=== PATIENT | male | born 1955 | race Hispanic/Latino ===

== ENCOUNTER 2018-07-04 18:07 | Emergency (ER) | payer OTHER ==
[2018-07-04 18:12] VITALS: RESP 16
[2018-07-04] MEDS ORDERED: Sodium Chloride 0.9% 1,000 ML IV STA (19:41)
[2018-07-04 20:03] LABS: BASO % 0.7 % (0.0-2.0); EOS # 0.1 K/uL (0.0-0.7); EOS % 3.5 % (0.0-4.0); HEMOGLOBIN 15.1 g/dL (12.0-18.0); LYMPH # 1.1 K/uL (1.0-4.3); LYMPH % 26.5 % (20.0-40.0); MEAN CELL VOLUME 93.4 fl (80.0-94.0); MEAN CORPUSCULAR HEMOGLOBIN 31.5 pg (27.0-31.0); MEAN CORPUSCULAR HGB CONC 33.8 g/dL (33.0-37.0); MEAN PLATELET VOLUME 8.3 fl (7.2-11.7); MONO # 0.5 K/uL (0.0-0.8); MONO % 12.8 % (0.0-10.0); NEUT # 2.4 K/uL (1.8-7.0); NEUT % 56.5 % (50.0-75.0); NRBC % 0.1 % (0.0-0.0); RBC 4.79 Mil/uL (4.40-5.90); RED CELL DISTRIBUTION WIDTH 12.4 % (11.5-14.5); WHITE BLOOD COUNT 4.2 K/uL (4.8-10.8)
[2018-07-04 20:16] LABS: ALB/GLOB RATIO 1.4 (1.0-2.1); ALBUMIN 4.5 g/dL (3.5-5.0); ALT/SGPT 31 U/L (21-72); AST/SGOT 27 U/L (17-59); BLOOD UREA NITROGEN 19 mg/dl (9-20); CALCIUM 9.7 mg/dL (8.4-10.2); GFR NON-AFRICAN AMERICAN > 60; PROTHROMBIN TIME 11.7 Seconds (9.8-13.1)
[2018-07-04 20:18] LABS: PARTIAL THROMBOPLASTIN TIME 28.4 Seconds (25.6-37.1)
--- NOTE | 2018-07-04 21:02 | ED PDOC ---
Syncope/Near Syncope/Dizziness Time Seen by Provider: 07/04/18 19:13 Chief Complaint (Nursing): Syncope Chief Complaint (Provider): Syncope History Per: Patient, Family () History/Exam Limitations: no limitations Current Symptoms Are (Timing): Better Activity At Onset Of Symptoms: Sitting Additional Complaint(s): Alejo Reece is a 63 year old male with no past medical history, who presents to the emergency department complaining of syncope. Patient states he has had no food or drinks today and was at the hospital because his son was an ER patient. He states that upon eating his first meal he felt acute weakness and his , who was with him at the time, further states that he became diaphoretic and had to lie down. She further states that for about x2 minutes he was unresponsive and pale. He became responsive after that and was asymptomatic upon arrival to the ED. Patient does also have a history of vasovagal reaction when he has blood work done. He further states that x2 days ago he for went for a routine physical which was normal with borderline elevated cholesterol. Patient also went to a routine stress test and EGG x2 weeks ago, which was all normal. Patient denies fever, cough, nausea, vomiting, abdominal pain. PMD: No provider Past Medical History Reviewed: Historical Data, Nursing Documentation, Vital Signs Vital Signs: Last Vital Signs Temp 98.2 F 07/04/18 18:09 Pulse 73 07/04/18 18:09 Resp 16 07/04/18 18:09 BP 106/62 07/04/18 18:09 Pulse Ox 98 07/04/18 18:09 - Medical History PMH: No Chronic Diseases - Surgical History Surgical History: Appendectomy - Family History Family History: States: Unknown Family Hx - Social History Alcohol: Occasional - Home Medications Home Medications: Ambulatory Orders Medication Instructions Recorded No Known Home Med 07/04/18 - Allergies Allergies/Adverse Reactions: Allergies Allergy/AdvReac Type Severity Reaction Status Date / Time Penicillins Allergy RASH Verified 07/04/18 18:09 Review of Systems ROS Statement: Except As Marked, All Systems Reviewed And Found Negative Constitutional: Positive for: Sweats. Negative for: Fever Respiratory: Negative for: Cough Gastrointestinal: Negative for: Nausea, Vomiting, Abdominal Pain Skin: Positive for: Other (pale) Neurological: Positive for: Weakness, Other (syncope) Physical Exam - Reviewed Nursing Documentation Reviewed: Yes Vital Signs Reviewed: Yes - Physical Exam Appears: Positive for: Non-toxic, No Acute Distress Head Exam: Positive for: ATRAUMATIC, NORMOCEPHALIC Skin: Positive for: Normal Color, Warm, Dry Eye Exam: Positive for: Normal appearance, EOMI, PERRL ENT: Positive for: Normal ENT Inspection Neck: Positive for: Normal, Painless ROM, Supple Cardiovascular/Chest: Positive for: Regular Rate, Rhythm. Negative for: Murmur Respiratory: Positive for: Normal Breath Sounds. Negative for: Respiratory Distress Gastrointestinal/Abdominal: Positive for: Normal Exam, Soft. Negative for: Tenderness Back: Positive for: Normal Inspection. Negative for: L CVA Tenderness, R CVA Tenderness, Vertebral Tenderness Extremity: Positive for: Normal ROM. Negative for: Pedal Edema, Deformity Neurologic/Psych: Positive for: Alert, Oriented. Negative for: Motor/Sensory Deficits - Laboratory Results Result Diagrams: 07/04/18 19:49 07/04/18 19:49 Lab Results: PT 11.7 Seconds (9.8-13.1) 07/04/18 19:49 INR 1.0 07/04/18 19:49 APTT 28.4 Seconds (25.6-37.1) 07/04/18 19:49 Troponin I < 0.0120 ng/mL (0.00-0.120) 07/04/18 19:49 Total Bilirubin 0.9 mg/dl (0.2-1.3) 07/04/18 19:49 AST 27 U/L (17-59) 07/04/18 19:49 ALT 31 U/L (21-72) 07/04/18 19:49 Alkaline Phosphatase 65 U/L (38-126) 07/04/18 19:49 Total Protein 7.6 G/DL (6.3-8.2) 07/04/18 19:49 Albumin 4.5 g/dL (3.5-5.0) 07/04/18 19:49 Globulin 3.1 gm/dL (2.2-3.9) 07/04/18 19:49 Albumin/Globulin Ratio 1.4 (1.0-2.1) 07/04/18 19:49 - ECG ECG Rhythm: Positive for: Sinus Rhythm, Right Bundle Branch Block (incomplete ) Rate: 60 (1828) O2 Sat by Pulse Oximetry: 98 (RA) Pulse Ox Interpretation: Normal Medical Decision Making Medical Decision Making: Time: 1939 Impression: 63 year old male with syncopal events. Plan: --EKG --Urinalysis --Alcohol serum --CMP --Magnesium --Troponin I --CBC with differential --PTT --PT --Sodium chloride 1,000 ml --IV insertion --Ortho BP 2100 Patient's labs have been reviewed and they show no abnormalities. Patient was asymptomatic for duration of stay. Provider offered admission for further work up of possible underlying arrhythmic abnormalities. At this time, patient has informed provider that he had an outpatient Evans study, which was normal. Patient commits to follow up with PMD. Return precautions were discussed. Diagnosis is syncope, vasovagal reactions. Scribe Attestation: Documented by Jamie Nichols, acting as a scribe for Madhu Barrera MD. Provider Scribe Attestation: All medical record entries made by the Scribe were at my direction and personally dictated by me. I have reviewed the chart and agree that the record accurately reflects my personal performance of the history, physical exam, medical decision making, and the department course for this patient. I have also personally directed, reviewed, and agree with the discharge instructions and disposition. Disposition - Clinical Impression Clinical Impression: Syncope - Disposition Disposition: Routine/Home Disposition Time: 21:00 Condition: STABLE Instructions: Syncope (Fainting), Vasovagal Response Forms: [employer] ([place])
[2018-07-04 22:04] VITALS: BP 112/64; PULSE 64; TEMP 98; O2SAT 99
--- NOTE | 2018-07-05 06:40 | CARD ---
APPROVED REPORT Date of service: 07/04/2018 EKG Measurement Heart [id number] <Conclusion> Sinus rhythm with sinus arrhythmia with 1st degree AV block Incomplete right bundle branch block Borderline ECG
== END 2018-07-04 21:30 | disposition home or self-care (01) ==
LOC: H.ER 18:07
DX: R55 Syncope and collapse (principal)
CPT/HCPCS: 80053; 80320; 82948; 83735; 84484; 85025; 85610; 85730; 93005; 99285; J7030